=== PATIENT | male | born 1950 | race Caucasian/White ===

== ENCOUNTER 2019-08-01 08:41 | Emergency (ER) | payer MEDICARE, OTHER ==
[~2019-08-01] VITALS: Ht 170.2 cm; Wt 79.0 kg
[2019-08-01 10:00] LABS: HEMATOCRIT 39.7 % (39.0-50.0); HEMOGLOBIN 12.3 g/dl (14.0-18.0); IMMATURE GRANULOCYTES 1.2 % (0.0-5.0); MEAN CELL VOLUME 87.8 fL CALC (80.0-100.0); MEAN CORPUSCULAR HGB 27.2 pG CALC (26.0-32.0); NEUT# 17.86 thou/uL (1.82-7.42); RED BLOOD COUNT 4.52 mill/uL (4.70-6.10); RED CELL DISTRI WIDTH 14.8 % (11.5-15.5)
[2019-08-01] MEDS ORDERED: NOVOLOG MIX100 U/ML SC ×2 (11:32→11:33)
[2019-08-01 11:33] LABS: ALBUMIN 2.6 g/dL (3.2-5.0); ALKALINE PHOSPHATASE 129 u/l (38-126); ANION GAP 14 (6-22 (CALC)); BILIRUBIN, TOTAL 0.5 mg/dL (0.0-1.4); BUN 14 mg/dL (8-23); BUN/CREATININE RATIO 29 (12-20 (CALC)); CARBON DIOXIDE 32 mmol/l (22-30); CHLORIDE 94 mmol/l (95-108); CREATININE 0.5 mg/dL (0.7-1.3); GFR > 60 ML/MIN (>=60 (CALC)); GFR FOR AFR.AMER. > 60 ML/MIN (>=60 (CALC)); POTASSIUM 3.7 mmol/l (3.5-5.1); SGOT/AST 105 u/l (19-48); SODIUM 136 mmol/l (137-146); TOTAL PROTEIN 5.8 g/dL (6.3-8.2)
[2019-08-01] MEDS ORDERED: PROTONIX40 M2 PO (11:33)
[2019-08-01] MEDS ORDERED: LOSARTAN POTASS25 MG PO (11:34)
[2019-08-01] MEDS ORDERED: DILTIAZEM240 MG PO (11:34)
[2019-08-01] MEDS ORDERED: LEVOCETIRIZINE D5 MG PO (11:35)
[2019-08-01] MEDS ORDERED: METFORMIN500 MG PO (11:35)
[2019-08-01] MEDS ORDERED: XANAX0.25 MG PO (11:36)
[2019-08-01] MEDS ORDERED: REMERON15 MG PO (11:37)
[2019-08-01] MEDS ORDERED: WELLBUTRIN100 M2 PO (11:37)
[2019-08-01] MEDS ORDERED: MELATONIN5 MG PO (11:38)
[2019-08-01] MEDS ORDERED: CLOBETASOL E0.05 % EX (11:39)
[2019-08-01] MEDS ORDERED: ZOFRAN8 MG PO (11:40)
[2019-08-01] MEDS ORDERED: COMPAZINE5 MG/TAB PO (11:40)
[2019-08-01] MEDS ORDERED: NITROSTAT0.4 MG SL (11:40)
[2019-08-01] MEDS ORDERED: MULTI VIT PO (11:41)
[2019-08-01 11:44] LABS: MYOGLOBIN 34 ng/mL (0 - 121)
[2019-08-01 11:59] LABS: URINE BILIRUBIN - DIPSTICK NEGATIVE (NEGATIVE); URINE BLOOD DIPSTICK NEGATIVE (NEGATIVE); URINE COLOR YELLOW; URINE GLUCOSE - DIPSTICK NEGATIVE (NEGATIVE); URINE KETONE NEGATIVE (NEGATIVE); URINE LEUK ESTERASE NEGATIVE (NEGATIVE); URINE NITRITE - DIPSTICK NEGATIVE (Negative); URINE PROTEIN - DIPSTICK TRACE mg/dL (NEG-TRACE); URINE SPECIFIC GRAVITY >=1.030; URINE UROBILINOGEN - DIPSTICK 0.2 E.U./dL (0.2)
[2019-08-01 13:46] VITALS: BP 139/66
== END 2019-08-01 13:46 | disposition short-term general hospital (02) ==
LOC: ED 08:41
PROVIDERS: Family Medicine
DX: J98.8 Other specified respiratory disorders (principal); J91.8 Pleural effusion in other conditions classified elsewhere; I10 Essential (primary) hypertension; C15.9 Malignant neoplasm of esophagus, unspecified; C78.00 Secondary malignant neoplasm of unspecified lung; R22.2 Localized swelling, mass and lump, trunk; Z95.1 Presence of aortocoronary bypass graft
CPT/HCPCS: Q9967